=== PATIENT | female | born 1990 | race Caucasian/White ===

== ENCOUNTER 2020-09-22 19:24 | Emergency (ER) | payer OTHER ==
[2020-09-22 19:30] VITALS: TEMP 98.3; BMI 24.8
[2020-09-22 21:05] LABS: BASO % 0.5 % (0-2.0); EOS % 0.5 % (0-4.5); HEMATOCRIT 41.2 % (32.4-45.2); HEMOGLOBIN 13.7 GM/dL (10.7-15.3); LYMPH % 18.2 % (8-40); MCH 28.2 pg (25.7-33.7); MCHC 33.3 g/dl (32.0-36.0); MEAN CELL VOLUME 84.7 fl (80-96); MEAN PLT VOLUME 8.7 fl (7.5-11.1); MONO % 6.4 % (3.8-10.2); NEUT % 74.4 % (42.8-82.8); PLATELET COUNT 284 K/MM3 (134-434); RBC 4.86 M/mm3 (3.60-5.2); RDW 13.7 % (11.6-15.6); WHITE BLOOD COUNT 13.6 K/mm3 (4.0-10.0)
[2020-09-22 21:10] LABS: PH,URINE 8.5 (5.0-8.0); URINE APPEARANCE TURBID; URINE BILIRUBIN NEGATIVE (NEGATIVE); URINE COLOR YELLOW; URINE GLUCOSE (UA) NEGATIVE (NEGATIVE); URINE KETONE 1+ (NEGATIVE); URINE LEUK ESTERASE NEGATIVE (NEGATIVE); URINE NITRITE NEGATIVE (NEGATIVE); URINE PROTEIN NEGATIVE (NEGATIVE); URINE UROBILINOGEN 0.2 mg/dL (0.2-1.0)
[2020-09-22] MEDS ORDERED: ONDANSETRON 4 MG/2 ML VIAL IVPB ONE (21:57)
[2020-09-22] MEDS ORDERED: ONDANSETRON 4 MG/2 ML VIAL ONE (22:01)
[2020-09-22 22:53] VITALS: BP 110/76; PULSE 78
== END 2020-09-22 22:53 | disposition home or self-care (01) ==
LOC: JER 19:24
PROC: 3E033GC Introduction of Other Therapeutic Substance into Peripheral Vein, Percutaneous Approach (ICD-10-PCS; principal; 2020-09-22)
DX: O21.1 Hyperemesis gravidarum with metabolic disturbance (principal); Z3A.11 11 weeks gestation of pregnancy
CPT/HCPCS: 36415; 76801-TC; 81003; 84702; 85025; 86850; 86900; 86901; 99284-25

== ENCOUNTER 2020-09-24 06:28 | Emergency (ER) | payer OTHER ==
[2020-09-24 06:42] VITALS: BMI 24.8
[2020-09-24] MEDS ORDERED: METOCLOPRAMIDE HCL INJECTION 10 MG/2 ML VIAL IVPUSH ONE (07:27)
[2020-09-24] MEDS ORDERED: LACTATED RINGERS SOLUTION 1000 ML INFUS.BAG IV ONE ×3 (07:27→10:49)
[2020-09-24] MEDS ORDERED: FAMOTIDINE 20 MG/50 ML IVPB 20 MG/50 ML MG IVPB ONE ×2 (07:27→08:09)
[2020-09-24] MEDS ORDERED: METOCLOPRAMIDE HCL INJECTION 10 MG/2 ML VIAL ONE (07:48)
[2020-09-24 07:59] LABS: BASO % 0.3 % (0-2.0); EOS % 0.2 % (0-4.5); HEMOGLOBIN 13.2 GM/dL (10.7-15.3); MCH 28.7 pg (25.7-33.7); MCHC 33.9 g/dl (32.0-36.0); MEAN CELL VOLUME 84.6 fl (80-96); MEAN PLT VOLUME 8.6 fl (7.5-11.1); MONO % 5.3 % (3.8-10.2); NEUT % 83.2 % (42.8-82.8); PLATELET COUNT 263 K/MM3 (134-434); RBC 4.61 M/mm3 (3.60-5.2); RDW 13.6 % (11.6-15.6); WHITE BLOOD COUNT 12.8 K/mm3 (4.0-10.0)
[2020-09-24 08:21] LABS: ALBUMIN 3.5 g/dl (3.4-5.0); BLOOD UREA NITROGEN 5.9 mg/dL (7-18); CALCIUM 9.6 mg/dL (8.5-10.1); MAGNESIUM 2.2 mg/dL (1.8-2.4)
[2020-09-24 08:24] LABS: CREATININE 0.5 mg/dL (0.55-1.3)
[2020-09-24 08:25] LABS: BILIRUBIN,TOTAL 0.4 mg/dL (0.2-1); TOT PROT 7.2 g/dl (6.4-8.2)
[2020-09-24] MEDS ORDERED: ONDANSETRON 4 MG/2 ML VIAL IVPUSH ONE (08:36)
[2020-09-24] MEDS ORDERED: ONDANSETRON 4 MG/2 ML VIAL ONE (08:41)
[2020-09-24 10:20] LABS: URINE APPEARANCE TURBID; URINE BILIRUBIN NEGATIVE (NEGATIVE); URINE COLOR YELLOW; URINE GLUCOSE (UA) NEGATIVE (NEGATIVE); URINE KETONE 2+ (NEGATIVE); URINE LEUK ESTERASE NEGATIVE (NEGATIVE); URINE NITRITE NEGATIVE (NEGATIVE); URINE PROTEIN TRACE (NEGATIVE)
[2020-09-24] MEDS ORDERED: MAG HYDROX/AL HYDROX/SIMETH 30 ML UNIT-DOSE CUP PO ONE (12:32)
[2020-09-24] MEDS ORDERED: MAG HYDROX/AL HYDROX/SIMETH 30 ML UNIT-DOSE CUP ONE (12:36)
[2020-09-24 13:07] VITALS: BP 104/43; PULSE 82; TEMP 98.2
== END 2020-09-24 13:08 | disposition home or self-care (01) ==
LOC: JER 06:28
PROC: 3E033NZ Introduction of Analgesics, Hypnotics, Sedatives into Peripheral Vein, Percutaneous Approach (ICD-10-PCS; principal; 2020-09-24)
PROC: 3E033GC Introduction of Other Therapeutic Substance into Peripheral Vein, Percutaneous Approach (ICD-10-PCS; 2020-09-24)
DX: O21.9 Vomiting of pregnancy, unspecified (principal); R11.0 Nausea; Z3A.10 10 weeks gestation of pregnancy
CPT/HCPCS: 36415; 76705-TC; 76815; 80053; 81003; 83690; 83735; 84702; 85025; 99285-25

== ENCOUNTER 2020-09-25 10:02 | Inpatient (IN) | payer OTHER ==
[2020-09-25] MEDS ORDERED: FAMOTIDINE 20 MG/50 ML IVPB 20 MG/50 ML MG IVPB ONE ×2 (10:14→10:32)
[2020-09-25] MEDS ORDERED: ACETAMINOPHEN 1000 MG/100 ML VIAL (NON FORMULARY) IVPB ONE (10:14)
[2020-09-25] MEDS ORDERED: ONDANSETRON 4 MG/2 ML VIAL IVPUSH ONE ×3 (10:14→20:24)
[2020-09-25] MEDS ORDERED: SODIUM CHLORIDE 1,000 ML IV STA (10:14)
[2020-09-25] MEDS ORDERED: ACETAMINOPHEN INJECTION 100 ML IVPB ONE (10:32)
[2020-09-25] MEDS ORDERED: ONDANSETRON 4 MG/2 ML VIAL ONE ×3 (10:34→20:26)
[2020-09-25 10:38] LABS: BASO % 0.2 % (0-2.0); HEMOGLOBIN 12.9 GM/dL (10.7-15.3); LYMPH % 7.5 % (8-40); MCHC 33.2 g/dl (32.0-36.0); MEAN CELL VOLUME 84.4 fl (80-96); MEAN PLT VOLUME 8.9 fl (7.5-11.1); MONO % 3.2 % (3.8-10.2); NEUT % 89.1 % (42.8-82.8); PLATELET COUNT 276 K/MM3 (134-434); RBC 4.61 M/mm3 (3.60-5.2); RDW 13.8 % (11.6-15.6); WHITE BLOOD COUNT 14.8 K/mm3 (4.0-10.0)
[2020-09-25 10:45] LABS: INR 1.16 (0.83-1.09)
[2020-09-25 11:03] LABS: ALBUMIN 3.6 g/dl (3.4-5.0); BLOOD UREA NITROGEN 5.4 mg/dL (7-18); CALCIUM 9.4 mg/dL (8.5-10.1)
[2020-09-25 11:07] LABS: CREATININE 0.5 mg/dL (0.55-1.3)
[2020-09-25 11:08] LABS: BILIRUBIN,TOTAL 0.5 mg/dL (0.2-1); TOT PROT 7.4 g/dl (6.4-8.2)
[2020-09-25] MEDS ORDERED: POTASSIUM CHLORIDE TABS 20 MEQ TABLET.ER (FP) PO ONE ×2 (11:22→11:35)
[2020-09-25 12:11] LABS: PH,URINE 6.5 (5.0-8.0); URINE APPEARANCE CLOUDY; URINE BILIRUBIN NEGATIVE (NEGATIVE); URINE COLOR YELLOW; URINE GLUCOSE (UA) NEGATIVE (NEGATIVE); URINE KETONE 4+ (NEGATIVE); URINE LEUK ESTERASE NEGATIVE (NEGATIVE); URINE NITRITE NEGATIVE (NEGATIVE); URINE PROTEIN TRACE (NEGATIVE); URINE UROBILINOGEN 0.2 mg/dL (0.2-1.0)
[2020-09-25] MEDS ORDERED: DEXTROSE 5%-WATER - 1,000 ML IV SCH (12:15)
[2020-09-25] MEDS ORDERED: MAG HYDROX/AL HYDROX/SIMETH 30 ML UNIT-DOSE CUP PO ONE (12:37)
[2020-09-25] MEDS ORDERED: MAG HYDROX/AL HYDROX/SIMETH 30 ML UNIT-DOSE CUP ONE ×2 (12:44→21:54)
[2020-09-25] MEDS ORDERED: METOCLOPRAMIDE HCL INJECTION 10 MG/2 ML VIAL IVPB ONE (13:35)
[2020-09-25] MEDS ORDERED: METOCLOPRAMIDE HCL INJECTION 10 MG/2 ML VIAL ONE (13:40)
[2020-09-25] MEDS ORDERED: FOLIC ACID INJECTION - 1 MG, THIAMINE HCL 100 MG, MULTIVIT INJECTION ADULT 10 ML in SOD... IVPB ONE (14:39)
[2020-09-25] MEDS ORDERED: DEXTROSE 5%-NORMAL SALINE 1,000 ML IV SCH (14:45)
[2020-09-25] MEDS ORDERED: MAG HYDROX/AL HYDROX/SIMETH -MYLANTA- ORAL SUSPENSION PO ONE (21:46)
[2020-09-26] MEDS ORDERED: DEXTROSE 5%-NORMAL SALINE 1,000 ML IV SCH (00:19)
[2020-09-26] MEDS ORDERED: PROCHLORPERAZINE INJECTION 10 MG/2 ML VIAL IVPB PRN (00:40)
[2020-09-26 01:03] VITALS: BMI 25.1
[2020-09-26] MEDS: METOCLOPRAMIDE HCL INJECTION 10 MG/2 ML VIAL IVPUSH SCH ×2 (01:10→08:35)
[2020-09-26] MEDS ORDERED: DEXTROSE 5% IV SCH (01:30)
[2020-09-26] MEDS ORDERED: POTASSIUM CHLORIDE IV SCH (01:30)
[2020-09-26] MEDS ORDERED: NORMAL SALINE IV SCH (01:30)
[2020-09-26] MEDS ORDERED: ACETAMINOPHEN 1000 MG/100 ML VIAL (NON FORMULARY) IVPB ONE ×2 (02:45→04:15)
[2020-09-26] MEDS: ONDANSETRON 4 MG/2 ML VIAL IVPUSH SCH ×3 (06:08→21:37)
[2020-09-26 08:36] LABS: BASO % 0.1 % (0-2.0); EOS % 0.1 % (0-4.5); HEMATOCRIT 38.1 % (32.4-45.2); HEMOGLOBIN 12.9 GM/dL (10.7-15.3); LYMPH % 12.3 % (8-40); MCH 28.6 pg (25.7-33.7); MCHC 33.9 g/dl (32.0-36.0); MEAN CELL VOLUME 84.4 fl (80-96); MONO % 4.9 % (3.8-10.2); NEUT % 82.6 % (42.8-82.8); PLATELET COUNT 274 K/MM3 (134-434); RBC 4.51 M/mm3 (3.60-5.2); WHITE BLOOD COUNT 13.8 K/mm3 (4.0-10.0)
[2020-09-26 09:05] LABS: ALBUMIN 3.5 g/dl (3.4-5.0); BLOOD UREA NITROGEN 3.2 mg/dL (7-18); CALCIUM 8.7 mg/dL (8.5-10.1)
[2020-09-26 09:08] LABS: CREATININE 0.4 mg/dL (0.55-1.3)
[2020-09-26 09:09] LABS: BILIRUBIN,TOTAL 0.7 mg/dL (0.2-1); MAGNESIUM 2.2 mg/dL (1.8-2.4); PHOSPHOROUS 2.1 mg/dL (2.5-4.9); TOT PROT 6.9 g/dl (6.4-8.2)
[2020-09-26] MEDS ORDERED: KCL 10 MEQ IVPB 10 MEQ/100 ML INFUS.BAG IVPB SCH (12:00)
[2020-09-26] MEDS ORDERED: FOLIC ACID 5 MG/1 ML SQ ONE (12:42)
[2020-09-26] MEDS ORDERED: FOLIC ACID 1 MG TABLET (FP) PO SCH (12:45)
[2020-09-26] MEDS: FOLIC ACID 5 MG/1 ML SQ SCH (13:00)
[2020-09-26] MEDS ORDERED: LACTATED RINGERS SOLUTION 1,000 ML/1,000 ML INFUS.BAG IV SCH (13:15)
[2020-09-26] MEDS: KCL 10 MEQ IVPB 10 MEQ/100 ML INFUS.BAG IVPB SCH ×2 (13:39→15:04)
[2020-09-26] MEDS ORDERED: POTASSIUM PHOSPHATE 30 MM in SODIUM CHLORIDE 500 ML IVPB ONE (14:00)
[2020-09-26] MEDS ORDERED: METOCLOPRAMIDE HCL INJECTION 10 MG/2 ML VIAL IVPUSH SCH (14:34)
[2020-09-26] MEDS ORDERED: ACETAMINOPHEN 1000 MG/100 ML VIAL (NON FORMULARY) IVPB PRN (15:01)
[2020-09-26] MEDS: SODIUM CHLORIDE 1,000 ML IV SCH (15:05)
[2020-09-26] MEDS ORDERED: PT OWN MED DRAWER 7, Y5N ONE (15:58)
[2020-09-27] MEDS ORDERED: METOCLOPRAMIDE HCL INJECTION 10 MG/2 ML VIAL IVPUSH PRN (08:14)
[2020-09-27 08:35] LABS: BASO % 0.3 % (0-2.0); EOS % 0.2 % (0-4.5); HEMATOCRIT 35.3 % (32.4-45.2); HEMOGLOBIN 12.2 GM/dL (10.7-15.3); LYMPH % 13.8 % (8-40); MCH 28.9 pg (25.7-33.7); MCHC 34.5 g/dl (32.0-36.0); MEAN CELL VOLUME 83.7 fl (80-96); MONO % 6.6 % (3.8-10.2); NEUT % 79.1 % (42.8-82.8); PLATELET COUNT 246 K/MM3 (134-434); RBC 4.21 M/mm3 (3.60-5.2); RDW 13.7 % (11.6-15.6); WHITE BLOOD COUNT 10.9 K/mm3 (4.0-10.0)
[2020-09-27 08:55] LABS: CALCIUM 8.3 mg/dL (8.5-10.1)
[2020-09-27 08:56] LABS: ALBUMIN 3.1 g/dl (3.4-5.0)
[2020-09-27 08:58] LABS: CREATININE 0.3 mg/dL (0.55-1.3)
[2020-09-27 08:59] LABS: PHOSPHOROUS 2.8 mg/dL (2.5-4.9)
[2020-09-27 09:00] LABS: BILIRUBIN,TOTAL 0.7 mg/dL (0.2-1); TOT PROT 6.2 g/dl (6.4-8.2)
[2020-09-27] MEDS: FOLIC ACID 5 MG/1 ML SQ SCH (10:10)
[2020-09-27] MEDS ORDERED: KCL 10 MEQ IVPB 10 MEQ/100 ML INFUS.BAG IVPB SCH (11:00)
[2020-09-27] MEDS ORDERED: POTASSIUM CHLORIDE TABS 20 MEQ TABLET.ER (FP) PO ONE (11:06)
[2020-09-27] MEDS: SODIUM CHLORIDE 1,000 ML IV SCH (14:31)
[2020-09-28 08:27] LABS: BASO % 0.3 % (0-2.0); EOS % 0.2 % (0-4.5); HEMATOCRIT 36.9 % (32.4-45.2); HEMOGLOBIN 12.7 GM/dL (10.7-15.3); LYMPH % 14.4 % (8-40); MCH 28.8 pg (25.7-33.7); MCHC 34.6 g/dl (32.0-36.0); MEAN CELL VOLUME 83.3 fl (80-96); MEAN PLT VOLUME 8.8 fl (7.5-11.1); MONO % 8.2 % (3.8-10.2); NEUT % 76.9 % (42.8-82.8); PLATELET COUNT 270 K/MM3 (134-434); RBC 4.43 M/mm3 (3.60-5.2); RDW 13.8 % (11.6-15.6); WHITE BLOOD COUNT 13.5 K/mm3 (4.0-10.0)
[2020-09-28 08:54] LABS: ALBUMIN 3.3 g/dl (3.4-5.0)
[2020-09-28 08:55] LABS: CALCIUM 8.6 mg/dL (8.5-10.1)
[2020-09-28 08:57] LABS: CREATININE 0.4 mg/dL (0.55-1.3)
[2020-09-28 08:58] LABS: BILIRUBIN,TOTAL 0.6 mg/dL (0.2-1)
[2020-09-28 08:59] LABS: TOT PROT 6.5 g/dl (6.4-8.2)
[2020-09-28] MEDS ORDERED: PT OWN MED DRAWER 7, Y5N ONE (09:47)
[2020-09-28] MEDS: FOLIC ACID 5 MG/1 ML SQ SCH (10:04)
[2020-09-28] MEDS ORDERED: POTASSIUM CHLORIDE TABS 20 MEQ TABLET.ER (FP) PO ONE (10:30)
[2020-09-28 14:21] VITALS: BP 133/80; PULSE 72; TEMP 98.8
== END 2020-09-28 16:42 | disposition home or self-care (01) | DRG 566 ==
LOC: JER 10:02 → JERBED 22:02 → J6S 09-26 00:09 → OBSVTOIN 09-26 00:14
PROVIDERS: ADMIT Hospitalist; ATTEND Student in an Organized Health Care Education/Training Program
DX: O21.0 Mild hyperemesis gravidarum (principal); Z3A.11 11 weeks gestation of pregnancy; D72.829 Elevated white blood cell count, unspecified; R94.31 Abnormal electrocardiogram [ECG] [EKG]; E87.6 Hypokalemia; R65.10 Systemic inflammatory response syndrome (SIRS) of non-infectious origin without acute organ dysfunction
CPT/HCPCS: 36415; 76705-TC; 76815; 80053; 81003; 82962; 83690; 83735; 84100; 84702; 85025; 85610; 87040; 87086; 93005; 93010; 99285-25; C9803; G0378; J0131; U0003; U0005

== ENCOUNTER 2021-04-06 06:35 | Inpatient (IN) | payer OTHER ==
[2021-04-06 07:36] VITALS: BMI 31.6
[2021-04-06] MEDS ORDERED: CITRIC ACID/SODIUM CITRATE 30 ML UNIT-DOSE CUP PO ONE (07:52)
[2021-04-06] MEDS ORDERED: WITCH HAZEL 50% (TUCKS) 40 PAD/JAR PAD TP PRN (07:54)
[2021-04-06] MEDS ORDERED: diphenhydrAMINE HCL 25 MG CAPSULE (FP) PO PRN (07:54)
[2021-04-06] MEDS ORDERED: HYDROmorphone HCL 2 MG TABLET PO PRN (07:54)
[2021-04-06] MEDS ORDERED: BENZOCAINE 20% 57 GM BOTTLE TP PRN (07:54)
[2021-04-06] MEDS ORDERED: BENZOCAINE 28 GM HEMORRHOIDAL OINTMENT PR PRN (07:54)
[2021-04-06] MEDS ORDERED: IBUPROFEN 800 MG/8 ML IJ IVPB PRN (07:54)
[2021-04-06] MEDS ORDERED: METHYLERGONOVINE MALEATE 0.2 MG/1 ML AMP IM PRN (07:54)
[2021-04-06] MEDS ORDERED: ACETAMINOPHEN 325 MG TABLET (FP) PO PRN (07:54)
[2021-04-06] MEDS ORDERED: ELECTROLYTE-148 SOLN 1,000 ML IV SCH (08:00)
[2021-04-06] MEDS ORDERED: OXYTOCIN 20 UNITS in 0.9% NS 20 UNIT/1,000 ML INFUS.BAG IV SCH (08:00)
[2021-04-06] MEDS ORDERED: IBUPROFEN 600 MG TABLET (FP) PO PRN (11:48)
[2021-04-06] MEDS ORDERED: morphine SULFATE/PF 1 MG/2 ML (2cc Syringe - QUVA) SPIN ONE (13:03)
[2021-04-06] MEDS ORDERED: OXYTOCIN 20 UNITS in 0.9% NS 20 UNIT/1,000 ML INFUS.BAG IV ONE (14:00)
[2021-04-06] MEDS ORDERED: ACETAMINOPHEN INJECTION 100 ML IVPB ONE (14:00)
[2021-04-06] MEDS ORDERED: ONDANSETRON 4 MG/2 ML VIAL IVPUSH PRN ×2 (14:07)
[2021-04-06 14:10] LABS: CORD HCO3 23.4 mmHg (20-29); CORD PCO2 51.7 mmHg (30-78)
[2021-04-06 14:14] LABS: CORD pH 7.274 (7.14-7.44)
[2021-04-06] MEDS ORDERED: LACTATED RINGERS SOLUTION 1,000 ML IV SCH (14:15)
[2021-04-06 14:16] LABS: CORD HCO3 22.5 mmHg (20-29); CORD PCO2 48.3 mmHg (30-78); CORD pH 7.286 (7.14-7.44)
[2021-04-06] MEDS ORDERED: ACETAMINOPHEN 1000 MG/100 ML VIAL IVPB ONE (14:22)
[2021-04-07 07:38] LABS: HEMATOCRIT 33.3 % (32.4-45.2); HEMOGLOBIN 11.2 GM/dL (10.7-15.3); MCH 27.8 pg (25.7-33.7); MCHC 33.6 g/dl (32.0-36.0); MEAN CELL VOLUME 82.7 fl (80-96); MEAN PLT VOLUME 7.9 fl (7.5-11.1); PLATELET COUNT 215 10^3/uL (134-434); RBC 4.02 M/mm3 (3.60-5.2); RDW 14.9 % (11.6-15.6); WHITE BLOOD COUNT 15.7 K/mm3 (4.0-10.0)
[2021-04-07] MEDS ORDERED: BISACODYL 10 MG SUPP.RECT PR PRN (07:54)
[2021-04-07] MEDS ORDERED: oxyCODONE HCL 5 MG TABLET PO PRN ×2 (07:54)
[2021-04-07 10:40] LABS: ANISOCYTOSIS 0; HELMET CELLS 0; HOWELL-JOLLY BODIES 0; MACROCYTOSIS 0; OVALOCYTE 0; PLATELET ESTIMATE NORMAL; ROULEAU 0; SICKELED CELLS 0; TARGET CELLS 0; TEAR DROP CELLS 0; TOXIC GRANULATION 0
[2021-04-07] MEDS: IBUPROFEN 600 MG TABLET (FP) PO PRN (18:23)
[2021-04-08] MEDS: SENNOSIDES/DOCUSATE COMBO (SENNA PLUS) TABLET (UD) PO PRN (02:04)
[2021-04-08] MEDS: IBUPROFEN 600 MG TABLET (FP) PO PRN ×3 (02:05→18:33)
[2021-04-08] MEDS: SIMETHICONE 80 MG TAB.CHEW (FP) PO PRN ×2 (02:05→11:06)
[2021-04-09] MEDS: SENNOSIDES/DOCUSATE COMBO (SENNA PLUS) TABLET (UD) PO PRN (00:21)
[2021-04-09] MEDS: IBUPROFEN 600 MG TABLET (FP) PO PRN ×2 (00:21→08:45)
[2021-04-09] MEDS: SIMETHICONE 80 MG TAB.CHEW (FP) PO PRN ×2 (00:22→08:46)
[2021-04-09 09:26] LABS: HEMATOCRIT 38.5 % (32.4-45.2); HEMOGLOBIN 12.6 GM/dL (10.7-15.3); MCH 27.6 pg (25.7-33.7); MCHC 32.8 g/dl (32.0-36.0); MEAN CELL VOLUME 84.3 fl (80-96); MEAN PLT VOLUME 8.7 fl (7.5-11.1); PLATELET COUNT 310 10^3/uL (134-434); RBC 4.57 M/mm3 (3.60-5.2); RDW 15.1 % (11.6-15.6); WHITE BLOOD COUNT 12.1 K/mm3 (4.0-10.0)
[2021-04-09 10:11] VITALS: BP 121/82; PULSE 83; TEMP 98.2
== END 2021-04-09 11:30 | disposition home or self-care (01) | DRG 540 ==
LOC: JLDR 06:35 → J3W 15:35
PROVIDERS: ADMIT Obstetrics & Gynecology; ATTEND Obstetrics & Gynecology
PROC: 10D00Z1 Extraction of Products of Conception, Low, Open Approach (ICD-10-PCS; principal; 2021-04-06)
DX: O34.219 Maternal care for unspecified type scar from previous cesarean delivery (principal); Z3A.39 39 weeks gestation of pregnancy; Z37.0 Single live birth
CPT/HCPCS: 36415; 36600; 82803; 85025; 85027; 88307-TC; J0131